=== PATIENT | female | born 1935 | race Two or more races ===

== ENCOUNTER 2019-04-21 00:30 | Inpatient (IN) | payer MEDICARE, OTHER ==
[~2019-04-21] VITALS: Ht 154.9 cm; Wt 66.0 kg
[2019-04-21] VITALS (33 sets, daily range): BP systolic 83–119; BP diastolic 35–75
[2019-04-21 00:53] LABS: BASOPHILS # (AUTO) 0.1 /CMM (0.0-0.2); BASOPHILS % (AUTO) 0.2 % (0.0-2.0); EOSINOPHILS % (AUTO) 0.1 % (0.0-6.0); PLATELET COUNT (AUTO) 91 /CMM (150-450)
[2019-04-21 01:00] LABS: CALCIUM, SERUM 8.2 mg/dL (8.5-10.1); CARBON DIOXIDE 16 mmol/L (21-32); CHLORIDE 102 mmol/L (98-107); CREATININE 2.5 mg/dL (0.6-1.3); GLUCOSE 77 mg/dL (74-106); HEMATOCRIT 39 % (33-45); HEMOGLOBIN 12.6 g/dL (11.5-14.8); LYMPHOCYTES # (AUTO) 0.8 /CMM (0.8-4.8); LYMPHOCYTES % (AUTO) 2.3 % (20.0-44.0); MEAN CORPUSCULAR HGB CONC 32 g/dl (31.0-36.0); MEAN CORPUSCULAR VOLUME 97 fL (82-100); MONOCYTES # (AUTO) 25.4 /CMM (0.1-1.30); MONOCYTES % (AUTO) 73.8 % (2.0-12.0); NEUTROPHILS # (AUTO) 8.1 /CMM (1.8-8.9); NEUTROPHILS % (AUTO) 23.6 % (43.0-81.0); POTASSIUM 5.2 mmol/L (3.5-5.1); RED BLOOD CELL COUNT(AUTO) 4.03 MIL/uL (4.0-5.2); SODIUM SERUM 137 mmol/L (136-145); UREA NITROGEN, BLOOD 40 mg/dL (7-18)
[2019-04-21] MEDS ORDERED: IV NS 0.9% 1,000 ML BAG IV ONE ×3 (01:00→02:00)
[2019-04-21 01:02] LABS: APPEARANCE,URINE Clear (CLEAR); BILIRUBIN,URINE MODERATE (NEGATIVE); BLOOD, URINE Trace-intact Ery/uL (NEGATIVE); COLOR,URINE Yellow (YELLOW); KETONES,URINE Trace (NEGATIVE); LEUKOCYTE ESTERASE ,URINE Small (NEGATIVE); NITRITE, URINE Negative (NEGATIVE); PROTEIN,URINE 30 mg/dl (NEGATIVE); UGLUCOSE 100 MG/DL mg/dL (NEGATIVE)
[2019-04-21 01:03] LABS: WHITE BLOOD COUNT (AUTO) 34.4 K/uL (4.3-11.0)
[2019-04-21 01:13] LABS: ALANINE AMINOTRANSFERASE 53 U/L (12-78); ALBUMIN 2.3 g/dL (3.4-5.0); ALKALINE PHOSPHATASE 198 U/L (46-116); ASPARTATE AMINOTRANSFERASE 85 U/L (15-37); B-TYPE NATRIURETIC PEPTIDE 9852 PG/ML (0-125); BILIRUBIN,DIRECT 0.4 mg/dL (0.0-0.2); BILIRUBIN,TOTAL 0.8 mg/dL (0.2-1.0); TOTAL PROTEIN, SERUM 5.8 g/dL (6.4-8.2)
[2019-04-21 01:29] LABS: WBC,URINE 51-80 /HPF (0-3)
[2019-04-21 01:30] LABS: BACTERIA,URINE Moderate /HPF (None Seen); SQUAMOUS EPITHELIAL CELL,UR Few /HPF (None Seen)
[2019-04-21] MEDS ORDERED: PIPERACILLIN /TAZOBACTAM 4.5 G in IV D5W 50 ML IV ONE (01:30)
[2019-04-21] MEDS ORDERED: VANCOMYCIN 1 GM in IV D5W 250 ML IV ONE (01:30)
[2019-04-21 01:33] LABS: BAND % (MANUAL) 17 % (0.0-5.0); LYMPHOCYTES % (MANUAL) 1 % (16-48); MONOCYTES % (MANUAL) 2 % (0-11.0); NEUTROPHILS % (MANUAL) 80 (42-76)
[2019-04-21] MEDS ORDERED: VANCOMYCIN 1 GM VIAL ONE (01:42)
[2019-04-21] MEDS ORDERED: PHENYLEPHRINE 40 MG in IV D5W 250 ML IV PRN ×2 (05:00→05:30)
[2019-04-21] MEDS ORDERED: LEVALBUTEROL HCL NEB 1.25 MG/0.5 ML VIAL.NEB NEB PRN (05:00)
[2019-04-21 05:29] LABS: BASOPHILS % (AUTO) 0.1 % (0.0-2.0); EOSINOPHILS % (AUTO) 17.2 % (0.0-6.0); HEMATOCRIT 36 % (33-45); HEMOGLOBIN 11.7 g/dL (11.5-14.8); LYMPHOCYTES # (AUTO) 0.6 /CMM (0.8-4.8); LYMPHOCYTES % (AUTO) 2.6 % (20.0-44.0); MEAN CORPUSCULAR HGB CONC 33 g/dl (31.0-36.0); MEAN CORPUSCULAR VOLUME 96 fL (82-100); MONOCYTES # (AUTO) 0.2 /CMM (0.1-1.30); MONOCYTES % (AUTO) 0.8 % (2.0-12.0); NEUTROPHILS # (AUTO) 17.9 /CMM (1.8-8.9); NEUTROPHILS % (AUTO) 79.3 % (43.0-81.0); PLATELET COUNT (AUTO) 66 /CMM (150-450); RED BLOOD CELL COUNT(AUTO) 3.76 MIL/uL (4.0-5.2); WHITE BLOOD COUNT (AUTO) 22.6 K/uL (4.3-11.0)
[2019-04-21] MEDS ORDERED: IV NS 0.9% 250 ML IV PRN (05:30)
[2019-04-21 05:44] LABS: ALANINE AMINOTRANSFERASE 47 U/L (12-78); ALBUMIN 2.1 g/dL (3.4-5.0); ALKALINE PHOSPHATASE 189 U/L (46-116); ASPARTATE AMINOTRANSFERASE 77 U/L (15-37); BILIRUBIN,TOTAL 0.9 mg/dL (0.2-1.0); CALCIUM, SERUM 6.8 mg/dL (8.5-10.1); CARBON DIOXIDE 15 mmol/L (21-32); CHLORIDE 108 mmol/L (98-107); CREATININE 1.8 mg/dL (0.6-1.3); GLUCOSE 85 mg/dL (74-106); MAGNESIUM 1.5 mg/dL (1.8-2.4); PHOSPHORUS 4.6 mg/dL (2.5-4.9); POTASSIUM 4.7 mmol/L (3.5-5.1); SODIUM SERUM 140 mmol/L (136-145); TOTAL PROTEIN, SERUM 5.5 g/dL (6.4-8.2); UREA NITROGEN, BLOOD 33 mg/dL (7-18)
[2019-04-21 05:45] LABS: IRON, SERUM 10 ug/dl (50-175); TOTAL IRON BINDING CAPACITY 214 ug/dl (250-450)
[2019-04-21] MEDS ORDERED: ACET-73 PO (05:49)
[2019-04-21] MEDS ORDERED: INSU100I26 SQ (05:49)
[2019-04-21] MEDS ORDERED: NA P133E RC (05:49)
[2019-04-21] MEDS ORDERED: ATOR20TA PO (05:49)
[2019-04-21] MEDS ORDERED: MAGN400O21 PO (05:49)
[2019-04-21] MEDS ORDERED: BISA-79 PR (05:49)
[2019-04-21] MEDS ORDERED: CRAN450C PO (05:49)
[2019-04-21] MEDS ORDERED: INSU100V39 SQ (05:49)
[2019-04-21] MEDS ORDERED: TRAM50TA2 PO (05:50)
[2019-04-21] MEDS ORDERED: LEVO25TA7 PO (05:50)
[2019-04-21] MEDS ORDERED: DOCU-141 PO (05:50)
[2019-04-21] MEDS ORDERED: POLY119P2 PO (05:50)
[2019-04-21] MEDS ORDERED: FOLI1TAB16 PO (05:50)
[2019-04-21] MEDS ORDERED: PREG50CA PO (05:50)
[2019-04-21] MEDS ORDERED: METF-440 PO (05:50)
[2019-04-21] MEDS ORDERED: LOSA25TA27 PO (05:50)
[2019-04-21] MEDS ORDERED: ASCO500T9 PO (05:50)
[2019-04-21] MEDS ORDERED: OMEP20CA11 PO (05:50)
[2019-04-21] MEDS ORDERED: FURO20TA4 PO (05:50)
[2019-04-21] MEDS ORDERED: MULT1TAB73 PO (05:50)
[2019-04-21] MEDS ORDERED: LEVO500T75 PO (05:50)
[2019-04-21 05:52] LABS: CHOLESTEROL 58 mg/dL (<200); HDL CHOLESTEROL 30 mg/dL (40-60); LDL 7 mg/dL (0-99); THYROID STIMULATING HORMONE 4.071 uIU/mL (0.358-3.74); TRIGLYCERIDES 72 mg/dL (30-150)
[2019-04-21] MEDS ORDERED: PIPERACILLIN /TAZOBACTAM 2.25 G VIAL IV ONE (05:52)
[2019-04-21] MEDS ORDERED: PIPERACILLIN /TAZOBACTAM 2.25 G in IV D5W 50 ML IV SCH (06:00)
[2019-04-21 06:12] LABS: LYMPHOCYTES % (MANUAL) 9 % (16-48); MONOCYTES % (MANUAL) 6 % (0-11.0); NEUTROPHILS % (MANUAL) 85 (42-76)
[2019-04-21] MEDS ORDERED: ONDANSETRON HCL/PF 4 MG/2 ML VIAL IVP PRN (07:00)
[2019-04-21] MEDS ORDERED: MAGNESIUM HYDROXIDE 30 ML UDC PO PRN (07:30)
[2019-04-21] MEDS ORDERED: DEXTROSE 50%-WATER 50 ML DISP.SYRIN IV PRN (07:30)
[2019-04-21] MEDS ORDERED: FEE PK DOSING 1 MIN EA MC ONE (08:21)
[2019-04-21] MEDS: BLOOD SUGAR DIAGNOSTIC 1 EACH STRIP IN SCH ×4 (08:41→22:30)
[2019-04-21] MEDS: PANTOPRAZOLE 40 MG VIAL IV SCH (08:41)
[2019-04-21] MEDS: FUROSEMIDE 20 MG/2 ML VIAL IV SCH ×2 (08:41→21:22)
[2019-04-21] MEDS: PIPERACILLIN /TAZOBACTAM 3.375 G in IV D5W 100 ML IV SCH ×2 (09:17→21:19)
[2019-04-21 09:31] LABS: ABG BASE EXCESS -10.6 mmol/L; ABG OXYGEN SATURATION 97.1 % (92.0-98.5); ABG PCO2 28.1 mmHg (35.0-45.0); ABG PH 7.317 (7.350-7.450); ABG PO2 103.1 mmHg (75.0-100.0); COHb 0.1 % (0.5-1.5); MetHb 0.6 % (0.0-1.5); O2Hb 96.4 % (94.0-97.0); SITE, ABG Right Radial
[2019-04-21] MEDS ORDERED: Magnesium 1GM/D5W 100ML PREMIX 100 ML IV SCH (10:30)
[2019-04-21] MEDS ORDERED: HEPARIN SODIUM, PORCINE 5000 UNITS/1 ML VIAL SQ SCH (10:30)
[2019-04-21] MEDS ORDERED: IV NS 0.9% 500 ML IV ONE (10:30)
[2019-04-21] MEDS: IV D5/ 0.9% NACL 1,000 ML IV PRN ×2 (10:51→21:18)
[2019-04-21] MEDS: IPRATROPIUM NEB FS 0.5 MG/2.5 ML AMPUL.NEB NEB SCH ×4 (11:53→23:44)
[2019-04-21] MEDS: ALBUTEROL HALF STRENGTH 1.25 MG/3 ML VIAL.NEB NEB SCH ×4 (11:53→23:44)
[2019-04-21] MEDS ORDERED: ALBUTEROL FS 2.5 MG/0.5 ML VIAL.NEB NEB PRN (13:30)
[2019-04-21] MEDS: INSULIN REGULAR, HUMAN 100 UNIT/ML 3 ML VIAL SQ PRN ×2 (16:42→23:38)
[2019-04-22] VITALS (64 sets, daily range): BP systolic 72–143; BP diastolic 31–94
[2019-04-22] MEDS ORDERED: VANCOMYCIN 0.75 GM in IV D5W 250 ML IV SCH (01:00)
[2019-04-22] MEDS: IPRATROPIUM NEB FS 0.5 MG/2.5 ML AMPUL.NEB NEB SCH ×6 (03:40→23:33)
[2019-04-22] MEDS: ALBUTEROL HALF STRENGTH 1.25 MG/3 ML VIAL.NEB NEB SCH ×6 (03:40→23:33)
[2019-04-22 04:09] LABS: BASOPHILS % (AUTO) 0.2 % (0.0-2.0); EOSINOPHILS % (AUTO) 3.4 % (0.0-6.0); HEMATOCRIT 35 % (33-45); HEMOGLOBIN 11.7 g/dL (11.5-14.8); LYMPHOCYTES # (AUTO) 0.3 /CMM (0.8-4.8); LYMPHOCYTES % (AUTO) 1.8 % (20.0-44.0); MEAN CORPUSCULAR HGB CONC 34 g/dl (31.0-36.0); MEAN CORPUSCULAR VOLUME 94 fL (82-100); MONOCYTES # (AUTO) 0.4 /CMM (0.1-1.30); MONOCYTES % (AUTO) 2.9 % (2.0-12.0); NEUTROPHILS # (AUTO) 13.2 /CMM (1.8-8.9); NEUTROPHILS % (AUTO) 91.7 % (43.0-81.0); PLATELET COUNT (AUTO) 52 /CMM (150-450); WHITE BLOOD COUNT (AUTO) 14.4 K/uL (4.3-11.0)
[2019-04-22 04:19] LABS: CALCIUM, SERUM 7.4 mg/dL (8.5-10.1); CREATININE 1.1 mg/dL (0.6-1.3); MAGNESIUM 2.1 mg/dL (1.8-2.4); PHOSPHORUS 1.8 mg/dL (2.5-4.9)
[2019-04-22 05:23] LABS: BAND % (MANUAL) 4 % (0.0-5.0); LYMPHOCYTES % (MANUAL) 2 % (16-48); MONOCYTES % (MANUAL) 8 % (0-11.0); NEUTROPHILS % (MANUAL) 86 (42-76)
[2019-04-22] MEDS ORDERED: ACETAMINOPHEN 650 MG/SUPP.RECT RC PRN (06:00)
[2019-04-22] MEDS: IV D5/ 0.9% NACL 1,000 ML IV PRN (07:01)
[2019-04-22] MEDS ORDERED: POTASSIUM PHOSPHATE MM 15 MMOL in IV D5W 250 ML IV SCH (07:30)
[2019-04-22] MEDS: BLOOD SUGAR DIAGNOSTIC 1 EACH STRIP IN SCH ×4 (08:02→21:21)
[2019-04-22] MEDS: INSULIN REGULAR, HUMAN 100 UNIT/ML 3 ML VIAL SQ PRN ×4 (08:03→21:18)
[2019-04-22] MEDS: PANTOPRAZOLE 40 MG VIAL IV SCH (08:43)
[2019-04-22] MEDS: PIPERACILLIN /TAZOBACTAM 3.375 G in IV D5W 100 ML IV SCH ×2 (08:43→21:07)
[2019-04-22] MEDS: Z GUARD REMEDY 2 OZ OINT TP PRN (08:46)
[2019-04-22] MEDS: Potassium Chloride 40 MEQ in IV D5/ 0.9% NACL 1,000 ML IV PRN ×2 (10:25→21:07)
[2019-04-22] MEDS: HYDROGEL DRESSING 90 GM TUBE TP SCH (13:43)
[2019-04-22] MEDS: NYSTATIN TOP POWDER 15 GM BOTTLE TP SCH ×2 (13:43→17:27)
[2019-04-22] MEDS: SOD FERRIC GLUC 125 MG in IV NS 0.9% 100 ML IV SCH (14:54)
[2019-04-22] MEDS: VANCOMYCIN 1 GM in IV D5W 250 ML IV SCH (18:09)
[2019-04-22] MEDS: ACETAMINOPHEN 325 MG TABLET PO PRN (21:53)
[2019-04-22] MEDS ORDERED: MORPHINE SULFATE INJ 2 MG/ML DISP.SYRIN IV PRN (22:30)
[2019-04-23] VITALS (29 sets, daily range): BP systolic 87–145; BP diastolic 40–76
[2019-04-23] MEDS: IPRATROPIUM NEB FS 0.5 MG/2.5 ML AMPUL.NEB NEB SCH ×6 (03:17→23:11)
[2019-04-23] MEDS: ALBUTEROL HALF STRENGTH 1.25 MG/3 ML VIAL.NEB NEB SCH ×6 (03:18→23:11)
[2019-04-23 04:16] LABS: BASOPHILS % (AUTO) 0.2 % (0.0-2.0); HEMATOCRIT 33 % (33-45); HEMOGLOBIN 11.1 g/dL (11.5-14.8); LYMPHOCYTES # (AUTO) 0.4 /CMM (0.8-4.8); LYMPHOCYTES % (AUTO) 3.8 % (20.0-44.0); MEAN CORPUSCULAR HGB CONC 33 g/dl (31.0-36.0); MEAN CORPUSCULAR VOLUME 95 fL (82-100); MONOCYTES # (AUTO) 0.7 /CMM (0.1-1.30); MONOCYTES % (AUTO) 6.6 % (2.0-12.0); NEUTROPHILS # (AUTO) 9.3 /CMM (1.8-8.9); NEUTROPHILS % (AUTO) 88.4 % (43.0-81.0); RED BLOOD CELL COUNT(AUTO) 3.53 MIL/uL (4.0-5.2); WHITE BLOOD COUNT (AUTO) 10.6 K/uL (4.3-11.0)
[2019-04-23 04:42] LABS: ALBUMIN 1.8 g/dL (3.4-5.0); CALCIUM, SERUM 7.1 mg/dL (8.5-10.1); CREATININE 0.8 mg/dL (0.6-1.3); MAGNESIUM 1.7 mg/dL (1.8-2.4); PHOSPHORUS 1.4 mg/dL (2.5-4.9); POTASSIUM 3.5 mmol/L (3.5-5.1); TOTAL PROTEIN, SERUM 5.1 g/dL (6.4-8.2)
[2019-04-23 04:43] LABS: PLATELET COUNT (AUTO) 30 /CMM (150-450)
[2019-04-23 05:36] LABS: LYMPHOCYTES % (MANUAL) 4 % (16-48); METAMYELOCYTES % 4 % (0-0); MONOCYTES % (MANUAL) 1 % (0-11.0); NEUTROPHILS % (MANUAL) 85 (42-76); PROMYELOCYTES % 4 % (0-0); REACTIVE LYMPHOCYTES 2 % (0-0)
[2019-04-23] MEDS: PANTOPRAZOLE 40 MG TABLET.DR PO SCH (06:51)
[2019-04-23] MEDS: Magnesium 1GM/D5W 100ML PREMIX 100 ML IV SCH ×2 (06:51→08:01)
[2019-04-23] MEDS: BLOOD SUGAR DIAGNOSTIC 1 EACH STRIP IN SCH ×4 (06:57→21:21)
[2019-04-23] MEDS ORDERED: POTASSIUM PHOSPHATE MM 15 MMOL in IV D5W 250 ML IV SCH (07:00)
[2019-04-23] MEDS: PIPERACILLIN /TAZOBACTAM 3.375 G in IV D5W 100 ML IV SCH (08:01)
[2019-04-23] MEDS: HYDROGEL DRESSING 90 GM TUBE TP SCH (08:01)
[2019-04-23] MEDS: INSULIN REGULAR, HUMAN 100 UNIT/ML 3 ML VIAL SQ PRN ×4 (08:02→21:28)
[2019-04-23] MEDS: NYSTATIN TOP POWDER 15 GM BOTTLE TP SCH ×2 (08:02→17:21)
[2019-04-23] MEDS: Z GUARD REMEDY 2 OZ OINT TP PRN (08:03)
[2019-04-23] MEDS: MUPIROCIN OINT 2% 22 GM TUBE SCH ×2 (08:15→20:15)
[2019-04-23] MEDS: Potassium Chloride 40 MEQ in IV D5/ 0.9% NACL 1,000 ML IV PRN (08:15)
[2019-04-23] MEDS ORDERED: IV PREMIX D5 1/2NS + KCL 1,000 ML IV ONE (12:00)
[2019-04-23] MEDS: VANCOMYCIN 1 GM in IV D5W 250 ML IV SCH (13:14)
[2019-04-23] MEDS: SOD FERRIC GLUC 125 MG in IV NS 0.9% 100 ML IV SCH (14:20)
[2019-04-23] MEDS ORDERED: MEROPENEM 1 G in IV NS 0.9% 100 ML IV ONE (15:00)
[2019-04-23] MEDS: MEROPENEM 1 G in IV NS 0.9% 100 ML IV SCH (15:59)
[2019-04-23] MEDS: DOCUSATE SODIUM LIQ 100 MG/10 ML UDC PO SCH (17:21)
[2019-04-23] MEDS: ACETAMINOPHEN 325 MG TABLET PO PRN (21:20)
[2019-04-24] MEDS: MEROPENEM 1 G in IV NS 0.9% 100 ML IV SCH ×2 (00:10→12:05)
[2019-04-24] MEDS ORDERED: VANCOMYCIN 0.75 GM in IV D5W 250 ML IV SCH (01:00)
[2019-04-24] MEDS: ALBUTEROL HALF STRENGTH 1.25 MG/3 ML VIAL.NEB NEB SCH ×6 (03:03→23:58)
[2019-04-24] MEDS: IPRATROPIUM NEB FS 0.5 MG/2.5 ML AMPUL.NEB NEB SCH ×6 (03:03→23:58)
[2019-04-24 04:00] VITALS: BP 114/62
[2019-04-24 06:20] LABS: BASOPHILS % (AUTO) 0.1 % (0.0-2.0); EOSINOPHILS % (AUTO) 1.8 % (0.0-6.0); HEMATOCRIT 34 % (33-45); HEMOGLOBIN 11.5 g/dL (11.5-14.8); LYMPHOCYTES # (AUTO) 0.5 /CMM (0.8-4.8); LYMPHOCYTES % (AUTO) 5.6 % (20.0-44.0); MEAN CORPUSCULAR HGB CONC 34 g/dl (31.0-36.0); MEAN CORPUSCULAR VOLUME 93 fL (82-100); MONOCYTES # (AUTO) 1.1 /CMM (0.1-1.30); MONOCYTES % (AUTO) 12.1 % (2.0-12.0); NEUTROPHILS # (AUTO) 7.3 /CMM (1.8-8.9); NEUTROPHILS % (AUTO) 80.4 % (43.0-81.0); RED BLOOD CELL COUNT(AUTO) 3.69 MIL/uL (4.0-5.2); WHITE BLOOD COUNT (AUTO) 9.1 K/uL (4.3-11.0)
[2019-04-24 06:26] LABS: PLATELET COUNT (AUTO) 29 /CMM (150-450)
[2019-04-24] MEDS: BLOOD SUGAR DIAGNOSTIC 1 EACH STRIP IN SCH ×4 (06:38→22:18)
[2019-04-24 06:39] LABS: ALANINE AMINOTRANSFERASE 25 U/L (12-78); ALBUMIN 1.8 g/dL (3.4-5.0); ALKALINE PHOSPHATASE 181 U/L (46-116); ASPARTATE AMINOTRANSFERASE 41 U/L (15-37); BILIRUBIN,TOTAL 1.1 mg/dL (0.2-1.0); CALCIUM, SERUM 7.5 mg/dL (8.5-10.1); CARBON DIOXIDE 20 mmol/L (21-32); CHLORIDE 112 mmol/L (98-107); CREATININE 0.6 mg/dL (0.6-1.3); GLUCOSE 156 mg/dL (74-106); MAGNESIUM 2.1 mg/dL (1.8-2.4); PHOSPHORUS 1.4 mg/dL (2.5-4.9); SODIUM SERUM 143 mmol/L (136-145); TOTAL PROTEIN, SERUM 5.5 g/dL (6.4-8.2); UREA NITROGEN, BLOOD 18 mg/dL (7-18)
[2019-04-24 08:00] VITALS: BP 134/68
[2019-04-24] MEDS: PANTOPRAZOLE 40 MG TABLET.DR PO SCH (08:23)
[2019-04-24] MEDS: DOCUSATE SODIUM LIQ 100 MG/10 ML UDC PO SCH ×2 (08:23→17:38)
[2019-04-24 09:31] LABS: BAND % (MANUAL) 1 % (0.0-5.0); EOSINOPHILS % (MANUAL) 1 % (0-4); LYMPHOCYTES % (MANUAL) 3 % (16-48); MONOCYTES % (MANUAL) 18 % (0-11.0); NEUTROPHILS % (MANUAL) 77 (42-76)
[2019-04-24] MEDS: MUPIROCIN OINT 2% 22 GM TUBE SCH ×2 (09:36→21:55)
[2019-04-24] MEDS: NYSTATIN TOP POWDER 15 GM BOTTLE TP SCH ×2 (09:36→18:00)
[2019-04-24] MEDS: HYDROGEL DRESSING 90 GM TUBE TP SCH (09:36)
[2019-04-24] MEDS ORDERED: K PHOS NEUTRAL 250 MG TABLET PO ONE (11:00)
[2019-04-24] MEDS: INSULIN REGULAR, HUMAN 100 UNIT/ML 3 ML VIAL SQ PRN ×3 (11:52→22:19)
[2019-04-24] MEDS: SOD FERRIC GLUC 125 MG in IV NS 0.9% 100 ML IV SCH (13:48)
[2019-04-24 16:00] VITALS: BP 134/78
[2019-04-24 20:08] VITALS: BP 154/76
[2019-04-25] MEDS: MEROPENEM 1 G in IV NS 0.9% 100 ML IV SCH ×3 (00:22→23:41)
[2019-04-25] MEDS: IPRATROPIUM NEB FS 0.5 MG/2.5 ML AMPUL.NEB NEB SCH ×5 (04:04→19:49)
[2019-04-25] MEDS: ALBUTEROL HALF STRENGTH 1.25 MG/3 ML VIAL.NEB NEB SCH ×5 (04:04→19:49)
[2019-04-25] MEDS: BLOOD SUGAR DIAGNOSTIC 1 EACH STRIP IN SCH ×4 (06:33→21:26)
[2019-04-25 06:39] LABS: BASOPHILS % (AUTO) 0.3 % (0.0-2.0); EOSINOPHILS % (AUTO) 1.7 % (0.0-6.0); HEMATOCRIT 35 % (33-45); HEMOGLOBIN 11.6 g/dL (11.5-14.8); LYMPHOCYTES # (AUTO) 0.6 /CMM (0.8-4.8); LYMPHOCYTES % (AUTO) 5.7 % (20.0-44.0); MEAN CORPUSCULAR HGB CONC 33 g/dl (31.0-36.0); MEAN CORPUSCULAR VOLUME 94 fL (82-100); MONOCYTES # (AUTO) 1.3 /CMM (0.1-1.30); MONOCYTES % (AUTO) 12.9 % (2.0-12.0); NEUTROPHILS # (AUTO) 7.8 /CMM (1.8-8.9); NEUTROPHILS % (AUTO) 79.4 % (43.0-81.0); RED BLOOD CELL COUNT(AUTO) 3.75 MIL/uL (4.0-5.2); WHITE BLOOD COUNT (AUTO) 9.8 K/uL (4.3-11.0)
[2019-04-25 06:42] LABS: PLATELET COUNT (AUTO) 36 /CMM (150-450)
[2019-04-25 06:58] LABS: CALCIUM, SERUM 7.9 mg/dL (8.5-10.1); CREATININE 0.6 mg/dL (0.6-1.3); MAGNESIUM 1.8 mg/dL (1.8-2.4); PHOSPHORUS 1.9 mg/dL (2.5-4.9); POTASSIUM 4.1 mmol/L (3.5-5.1)
[2019-04-25 08:00] VITALS: BP 126/69
[2019-04-25] MEDS: DOCUSATE SODIUM LIQ 100 MG/10 ML UDC PO SCH ×2 (08:55→17:37)
[2019-04-25] MEDS: HYDROGEL DRESSING 90 GM TUBE TP SCH (08:55)
[2019-04-25] MEDS: NYSTATIN TOP POWDER 15 GM BOTTLE TP SCH ×2 (08:57→17:38)
[2019-04-25] MEDS: MUPIROCIN OINT 2% 22 GM TUBE SCH ×2 (08:57→21:23)
[2019-04-25] MEDS: PANTOPRAZOLE 40 MG TABLET.DR PO SCH (08:58)
[2019-04-25] MEDS ORDERED: K PHOS NEUTRAL 250 MG TABLET PO ONE (09:30)
[2019-04-25 09:52] LABS: BAND % (MANUAL) 4 % (0.0-5.0); EOSINOPHILS % (MANUAL) 2 % (0-4); LYMPHOCYTES % (MANUAL) 7 % (16-48); MONOCYTES % (MANUAL) 7 % (0-11.0); NEUTROPHILS % (MANUAL) 80 (42-76)
[2019-04-25] MEDS: INSULIN REGULAR, HUMAN 100 UNIT/ML 3 ML VIAL SQ PRN ×3 (13:13→21:27)
[2019-04-25] MEDS: SOD FERRIC GLUC 125 MG in IV NS 0.9% 100 ML IV SCH (15:03)
[2019-04-25] MEDS ORDERED: ACYCLOVIR IV 500 MG in IV NS 0.9% 100 ML IV SCH (15:30)
[2019-04-25] MEDS: NEOMY SULF/BACITRAC ZN/POLY 15 GM TUBE TP SCH (15:30)
[2019-04-25 16:00] VITALS: BP 148/110
[2019-04-25] MEDS: VALACYCLOVIR HCL 500 MG TABLET PO SCH (17:37)
[2019-04-25 20:00] VITALS: BP 119/72
[2019-04-26] MEDS: ALBUTEROL HALF STRENGTH 1.25 MG/3 ML VIAL.NEB NEB SCH ×7 (00:15→23:01)
[2019-04-26] MEDS: IPRATROPIUM NEB FS 0.5 MG/2.5 ML AMPUL.NEB NEB SCH ×7 (00:15→23:01)
[2019-04-26 06:32] LABS: BASOPHILS % (AUTO) 0.1 % (0.0-2.0); EOSINOPHILS % (AUTO) 2.2 % (0.0-6.0); HEMATOCRIT 36 % (33-45); HEMOGLOBIN 11.7 g/dL (11.5-14.8); LYMPHOCYTES # (AUTO) 0.8 /CMM (0.8-4.8); LYMPHOCYTES % (AUTO) 6.2 % (20.0-44.0); MEAN CORPUSCULAR HGB CONC 33 g/dl (31.0-36.0); MEAN CORPUSCULAR VOLUME 94 fL (82-100); MONOCYTES # (AUTO) 1.4 /CMM (0.1-1.30); MONOCYTES % (AUTO) 11.3 % (2.0-12.0); NEUTROPHILS # (AUTO) 10.1 /CMM (1.8-8.9); NEUTROPHILS % (AUTO) 80.2 % (43.0-81.0); RED BLOOD CELL COUNT(AUTO) 3.79 MIL/uL (4.0-5.2); WHITE BLOOD COUNT (AUTO) 12.6 K/uL (4.3-11.0)
[2019-04-26 06:35] LABS: PLATELET COUNT (AUTO) 45 /CMM (150-450)
[2019-04-26] MEDS: BLOOD SUGAR DIAGNOSTIC 1 EACH STRIP IN SCH ×4 (06:43→22:17)
[2019-04-26] MEDS: INSULIN REGULAR, HUMAN 100 UNIT/ML 3 ML VIAL SQ PRN ×4 (06:44→22:18)
[2019-04-26 06:51] LABS: CREATININE 0.6 mg/dL (0.6-1.3); MAGNESIUM 1.7 mg/dL (1.8-2.4); PHOSPHORUS 3.3 mg/dL (2.5-4.9)
[2019-04-26] MEDS: PANTOPRAZOLE 40 MG TABLET.DR PO SCH (07:43)
[2019-04-26 07:50] LABS: BAND % (MANUAL) 2 % (0.0-5.0); NEUTROPHILS % (MANUAL) 81 (42-76)
[2019-04-26 07:51] LABS: LYMPHOCYTES % (MANUAL) 7 % (16-48); MONOCYTES % (MANUAL) 10 % (0-11.0)
[2019-04-26 08:00] VITALS: BP 140/74
[2019-04-26 08:09] LABS: IMMUNOGLOBULIN A, SERUM 441 mg/dL (64-422); IMMUNOGLOBULIN G, SERUM 1051 mg/dL (700-1600); IMMUNOGLOBULIN M, SERUM 187 mg/dL (26-217)
[2019-04-26] MEDS: MUPIROCIN OINT 2% 22 GM TUBE SCH ×2 (08:24→20:32)
[2019-04-26] MEDS: VALACYCLOVIR HCL 500 MG TABLET PO SCH ×2 (08:24→17:35)
[2019-04-26] MEDS: DOCUSATE SODIUM LIQ 100 MG/10 ML UDC PO SCH ×2 (08:24→17:35)
[2019-04-26] MEDS: NEOMY SULF/BACITRAC ZN/POLY 15 GM TUBE TP SCH (08:25)
[2019-04-26] MEDS: NYSTATIN TOP POWDER 15 GM BOTTLE TP SCH ×2 (08:25→17:35)
[2019-04-26] MEDS: HYDROGEL DRESSING 90 GM TUBE TP SCH (08:26)
[2019-04-26] MEDS ORDERED: MAGNESIUM OXIDE 400 MG TABLET PO ONE (10:00)
[2019-04-26] MEDS ORDERED: POLYETHYLENE GLYCOL 3350 17 GM POWD.PACK PO PRN (11:00)
[2019-04-26] MEDS: MEROPENEM 1 G in IV NS 0.9% 100 ML IV SCH ×2 (12:27→23:40)
[2019-04-26 16:00] VITALS: BP 128/85
[2019-04-26] MEDS: SOD FERRIC GLUC 125 MG in IV NS 0.9% 100 ML IV SCH (16:04)
[2019-04-26 20:00] VITALS: BP 123/59
[2019-04-26 20:21] VITALS: BP 123/59
[2019-04-27] MEDS: ALBUTEROL HALF STRENGTH 1.25 MG/3 ML VIAL.NEB NEB SCH ×5 (04:03→20:38)
[2019-04-27] MEDS: IPRATROPIUM NEB FS 0.5 MG/2.5 ML AMPUL.NEB NEB SCH ×5 (04:03→20:38)
[2019-04-27 06:24] LABS: BASOPHILS % (AUTO) 0.3 % (0.0-2.0); HEMATOCRIT 31 % (33-45); HEMOGLOBIN 10.2 g/dL (11.5-14.8); LYMPHOCYTES # (AUTO) 0.7 /CMM (0.8-4.8); LYMPHOCYTES % (AUTO) 6.5 % (20.0-44.0); MEAN CORPUSCULAR HGB CONC 33 g/dl (31.0-36.0); MEAN CORPUSCULAR VOLUME 94 fL (82-100); MONOCYTES % (AUTO) 8.5 % (2.0-12.0); NEUTROPHILS # (AUTO) 9.5 /CMM (1.8-8.9); NEUTROPHILS % (AUTO) 82.7 % (43.0-81.0); PLATELET COUNT (AUTO) 57 /CMM (150-450); RED BLOOD CELL COUNT(AUTO) 3.33 MIL/uL (4.0-5.2); WHITE BLOOD COUNT (AUTO) 11.5 K/uL (4.3-11.0)
[2019-04-27 07:00] LABS: CARBON DIOXIDE 26 mmol/L (21-32); CHLORIDE 112 mmol/L (98-107); CREATININE 0.5 mg/dL (0.6-1.3); GLUCOSE 133 mg/dL (74-106); MAGNESIUM 1.8 mg/dL (1.8-2.4); PHOSPHORUS 3.7 mg/dL (2.5-4.9); POTASSIUM 4.2 mmol/L (3.5-5.1); SODIUM SERUM 144 mmol/L (136-145); UREA NITROGEN, BLOOD 23 mg/dL (7-18)
[2019-04-27] MEDS: BLOOD SUGAR DIAGNOSTIC 1 EACH STRIP IN SCH ×4 (07:22→21:34)
[2019-04-27] MEDS: INSULIN REGULAR, HUMAN 100 UNIT/ML 3 ML VIAL SQ PRN ×3 (07:23→17:31)
[2019-04-27 08:00] VITALS: BP 102/52
[2019-04-27 08:40] LABS: BAND % (MANUAL) 1 % (0.0-5.0); EOSINOPHILS % (MANUAL) 3 % (0-4); LYMPHOCYTES % (MANUAL) 7 % (16-48); MONOCYTES % (MANUAL) 8 % (0-11.0); NEUTROPHILS % (MANUAL) 81 (42-76)
[2019-04-27] MEDS: VALACYCLOVIR HCL 500 MG TABLET PO SCH ×2 (08:40→17:28)
[2019-04-27] MEDS: DOCUSATE SODIUM LIQ 100 MG/10 ML UDC PO SCH ×2 (08:40→17:28)
[2019-04-27] MEDS: PANTOPRAZOLE 40 MG TABLET.DR PO SCH (08:40)
[2019-04-27] MEDS: MUPIROCIN OINT 2% 22 GM TUBE SCH ×2 (08:41→20:28)
[2019-04-27] MEDS: HYDROGEL DRESSING 90 GM TUBE TP SCH (08:41)
[2019-04-27] MEDS: NYSTATIN TOP POWDER 15 GM BOTTLE TP SCH ×2 (08:41→17:29)
[2019-04-27] MEDS: NEOMY SULF/BACITRAC ZN/POLY 15 GM TUBE TP SCH (08:41)
[2019-04-27] MEDS ORDERED: ERTA1VIA4 IV (10:22)
[2019-04-27] MEDS ORDERED: VALA500T PO (10:22)
[2019-04-27] MEDS ORDERED: FUROSEMIDE 40 MG/4 ML VIAL IV ONE (10:30)
[2019-04-27] MEDS: MEROPENEM 1 G in IV NS 0.9% 100 ML IV SCH (11:38)
[2019-04-27 12:06] LABS: *SPE A/G RATIO 0.7 (0.7-1.7); *SPE ALBUMIN 2.1 g/dL (2.9-4.4); *SPE ALPHA-1-GLOBULIN 0.4 g/dL (0.0-0.4); *SPE ALPHA-2-GLOBULIN 0.6 g/dL (0.4-1.0); *SPE BETA GLOBULIN 0.8 g/dL (0.7-1.3); *SPE M-SPIKE Not Observed g/dL (Not Observed); *SPEGAMMA GLOBULIN 1.2 g/dL (0.4-1.8)
[2019-04-27 16:00] VITALS: BP 90/49
[2019-04-27 20:00] VITALS: BP 117/63
== END 2019-04-27 22:45 | DRG 871 ==
LOC: ER 00:30 → ICU 02:24 → TELE 04-23 14:28 → MED 04-24 08:04
PROVIDERS: ADMIT Internal Medicine; ATTEND Nurse Practitioner Acute Care
PROC: 02HV33Z Insertion of Infusion Device into Superior Vena Cava, Percutaneous Approach (ICD-10-PCS; principal; 2019-04-21)
PROC: B548ZZA Ultrasonography of Superior Vena Cava, Guidance (ICD-10-PCS; 2019-04-21)
DX: A41.51 Sepsis due to Escherichia coli [E. coli] (principal); L89.153 Pressure ulcer of sacral region, stage 3; E43 Unspecified severe protein-calorie malnutrition; G92 Toxic encephalopathy; J96.01 Acute respiratory failure with hypoxia; R65.21 Severe sepsis with septic shock; N17.0 Acute kidney failure with tubular necrosis; I50.31 Acute diastolic (congestive) heart failure; I21.A1 Myocardial infarction type 2; N39.0 Urinary tract infection, site not specified; I13.0 Hypertensive heart and chronic kidney disease with heart failure and stage 1 through stage 4 chronic kidney disease, or unspecified chronic kidney disease; E87.2 Acidosis; E87.0 Hyperosmolality and hypernatremia; Z16.12 Extended spectrum beta lactamase (ESBL) resistance; R18.8 Other ascites; K76.6 Portal hypertension; N18.9 Chronic kidney disease, unspecified; D73.1 Hypersplenism; E03.9 Hypothyroidism, unspecified; D69.59 Other secondary thrombocytopenia; E83.42 Hypomagnesemia; E78.5 Hyperlipidemia, unspecified; E86.0 Dehydration; E11.9 Type 2 diabetes mellitus without complications; D50.9 Iron deficiency anemia, unspecified; K21.9 Gastro-esophageal reflux disease without esophagitis; L30.4 Erythema intertrigo; Z66 Do not resuscitate; D69.6 Thrombocytopenia, unspecified; M19.90 Unspecified osteoarthritis, unspecified site; Z68.27 Body mass index [BMI] 27.0-27.9, adult; E87.5 Hyperkalemia; F09 Unspecified mental disorder due to known physiological condition; F03.90 Unspecified dementia, unspecified severity, without behavioral disturbance, psychotic disturbance, mood disturbance, and anxiety; G89.29 Other chronic pain; I11.0 Hypertensive heart disease with heart failure; K74.60 Unspecified cirrhosis of liver; E11.40 Type 2 diabetes mellitus with diabetic neuropathy, unspecified; B00.89 Other herpesviral infection
CPT/HCPCS: 36415; 36569; 36600; 70450-TC; 71045-TC; 74018; 76700-TC; 76770-TC; 80048-TC; 80053-TC; 80061-TC; 80076-TC; 80202-TC; 81000-TC; 82140-TC; 82378; 82533; 82784; 82962-TC; 83540-TC; 83605-TC; 83735-TC; 83880; 84100-TC; 84155; 84165; 84439-TC; 84443-TC; 84484-TC; 85025-TC; 85385-TC; 85610-TC; 85730-TC; 86334; 87040-TC; 87081-TC; 87086-TC; 87186-TC; 92526; 92611-TC; 93307-TC; 94760-TC; 94799-TC; 97110-TC; 97112-TC; 97530-TC; A6248; C1751; C9113; G0378; J0133; J1815; J1940; J2185; J2270; J2370; J2543; J2916; J3370; J3475; J3480; J3490; J7030; J7040; J7042; J7050; J7060

== ENCOUNTER 2019-07-10 21:49 | Inpatient (IN) | payer MEDICARE, OTHER ==
[~2019-07-10] VITALS: Ht 142.2 cm
[~2019-07-10 21:49] MED LIST: ACET-73 PO; ASCO-352 PO; ATOR20TA PO; BISA-79 PR; CRAN450C PO; DOCU-141 PO; ERTA1VIA4 IV; FOLI1TAB16 PO; FURO20TA4 PO; INSU100I26 SQ; INSU100V39 SQ; LEVO25TA7 PO; LOSA25TA27 PO; MAGN400O21 PO; METF-440 PO; MULT1TAB73 PO; NA P133E RC; OMEP20CA15 PO; POLY119P2 PO; VALA500T PO
[2019-07-10] MEDS ORDERED: ACETAMINOPHEN 650 MG/SUPP.RECT RC ONE ×2 (22:24→22:30)
[2019-07-10] MEDS ORDERED: VANCOMYCIN 1 GM VIAL ONE (22:24)
[2019-07-10] MEDS ORDERED: PIPERACILLIN /TAZOBACTAM 3.375 G VIAL IV ONE (22:24)
[2019-07-10] MEDS ORDERED: PIPERACILLIN /TAZOBACTAM 3.375 G in IV D5W 50 ML IV ONE (22:30)
[2019-07-10] MEDS ORDERED: VANCOMYCIN 1 GM in IV D5W 250 ML IV ONE (22:30)
[2019-07-10] MEDS ORDERED: IV NS 0.9% 1,000 ML BAG IV ONE (22:30)
--- NOTE | 2019-07-10 22:40 | NUR ---
BIB director behavioral health FROM [facility] FR EVALUATION OF AMS AND INCREASED WEAKNESS. PT NON VERBAL EYES OPEN. PT HAVING TROUBLE BREATHING, CHRISTINA LEGS SWELLING. PLACED ON DOCUMENTATION BILLING CLERK. PT SEEN & EVAL'D BY DR. HSIEH. WILL CONT TO MONITOR.
[2019-07-10 22:46] LABS: BASOPHILS # (AUTO) 0.1 /CMM (0.0-0.2); EOSINOPHILS % (AUTO) 0.8 % (0.0-6.0); NEUTROPHILS # (AUTO) 9.9 /CMM (1.8-8.9)
[2019-07-10 22:50] LABS: BASOPHILS % (AUTO) 0.7 % (0.0-2.0); HEMATOCRIT 38 % (33-45); HEMOGLOBIN 11.9 g/dL (11.5-14.8); LYMPHOCYTES # (AUTO) 1.2 /CMM (0.8-4.8); LYMPHOCYTES % (AUTO) 10.2 % (20.0-44.0); MEAN CORPUSCULAR HGB CONC 31 g/dl (31.0-36.0); MEAN CORPUSCULAR VOLUME 99 fL (82-100); MONOCYTES # (AUTO) 0.2 /CMM (0.1-1.30); NEUTROPHILS % (AUTO) 86.3 % (43.0-81.0); PLATELET COUNT (AUTO) 143 /CMM (150-450); RED BLOOD CELL COUNT(AUTO) 3.84 MIL/uL (4.0-5.2); WHITE BLOOD COUNT (AUTO) 11.5 K/uL (4.3-11.0)
--- NOTE | 2019-07-10 22:55 | NUR ---
MEDICATED PER ERMD ORDER, PT STEFF WELL. WILL CONT TO MONITOR.
[2019-07-10 23:00] LABS: ALANINE AMINOTRANSFERASE 10 U/L (12-78); ALBUMIN 1.5 g/dL (3.4-5.0); ALKALINE PHOSPHATASE 171 U/L (46-116); ASPARTATE AMINOTRANSFERASE 25 U/L (15-37); BILIRUBIN,DIRECT 0.7 mg/dL (0.0-0.2); BILIRUBIN,TOTAL 1.5 mg/dL (0.2-1.0); CALCIUM, SERUM 7.8 mg/dL (8.5-10.1); CARBON DIOXIDE 25 mmol/L (21-32); CHLORIDE 122 mmol/L (98-107); CREATININE 1.3 mg/dL (0.6-1.3); GLUCOSE 116 mg/dL (74-106); POTASSIUM 3.6 mmol/L (3.5-5.1); TOTAL PROTEIN, SERUM 6.9 g/dL (6.4-8.2); UREA NITROGEN, BLOOD 35 mg/dL (7-18)
[2019-07-10 23:03] LABS: SODIUM SERUM 158 mmol/L (136-145)
[2019-07-10 23:40] LABS: APPEARANCE,URINE TURBID (CLEAR); COLOR,URINE AMBER (YELLOW)
[2019-07-10 23:41] LABS: BILIRUBIN,URINE NEGATIVE (NEGATIVE); BLOOD, URINE 3+ Ery/uL (NEGATIVE); KETONES,URINE NEGATIVE (NEGATIVE); NITRITE, URINE NEGATIVE (NEGATIVE); PH,URINE 7.5 (5.0-8.0); PROTEIN,URINE 3+ mg/dl (NEGATIVE); UGLUCOSE NEGATIVE (NEGATIVE); UROBILINOGEN,URINE 0.2 EU/dL (0.2)
[2019-07-10 23:42] LABS: BACTERIA,URINE Moderate /HPF (None Seen); LEUKOCYTE ESTERASE ,URINE 3+ (NEGATIVE); MUCUS,URINE Few /LPF (None Seen); RBC,URINE 51-80 /HPF (0-2); SQUAMOUS EPITHELIAL CELL,UR Few /HPF (None Seen); WBC,URINE TOO NUMEROUS TO COUN /HPF (0-3)
[2019-07-10 23:44] LABS: ABG BASE EXCESS -6.9 mmol/L; ABG OXYGEN SATURATION 91.3 % (92.0-98.5); ABG PCO2 23.6 mmHg (35.0-45.0); ABG PH 7.438 (7.350-7.450); ABG PO2 68.2 mmHg (75.0-100.0); AaDO2 218.6 mmHg; COHb 0.3 % (0.5-1.5); MetHb 0.5 % (0.0-1.5); O2Hb 90.6 % (94.0-97.0); SITE, ABG Left Radial
[2019-07-11] MEDS ORDERED: SODIUM BICARBONATE SYR 50 MEQ/50 ML DISP.SYRIN IV ONE
[2019-07-11] MEDS ORDERED: ACETAMINOPHEN 325 MG TABLET PO PRN (00:30)
[2019-07-11] MEDS ORDERED: ONDANSETRON HCL/PF 4 MG/2 ML VIAL IVP PRN (00:30)
[2019-07-11] MEDS ORDERED: ZOLPIDEM TARTRATE 5 MG TABLET PO PRN (00:30)
[2019-07-11] MEDS ORDERED: Z GUARD REMEDY 2 OZ OINT TP PRN (00:30)
[2019-07-11] MEDS ORDERED: HYDROCODONE/APAP 5/325MG 1 EACH TABLET PO PRN (00:30)
[2019-07-11 01:10] VITALS: BP 101/51
--- NOTE | 2019-07-11 01:10 | NUR ---
0110 ADMITTED FROM ER 84 YEAR OLD FEMALE WITH DX OF SEPSIS AND AMS. PATIENT ON SIMPLE FACE MASK AT 8LPM. O2 SATURATION NOTED IN THE LOW 90S WHEN CHECKED. NOTED PATIENT TO HAVE LABORED BREATHING IN THE MID 20S. BRANNON CATHETER TO DRAIN WITH SMALL AMOUNT OF BLOODY URINE. COLLEGE ATHLETE FARRUKH AT BEDSIDE AND AWARE OF IT. BILATERAL LOWER EXT. PITTING EDEMA NOTED. ADMISSION CARE RENDERED.
--- NOTE | 2019-07-11 01:13 | NUR ---
PT TO KATHERYN VIA VIVIAN WITH EMT AND RN.
--- NOTE | 2019-07-11 01:30 | NUR ---
7093 PAGED DEPARTMENT CLINICIAN FARRUKH FOR BIPAP ORDER. AWAITING CALL BACK
--- NOTE | 2019-07-11 01:43 | NUR ---
0143 REBECCA CHADWICK CALLED BACK WITH ORDER TO PUT PATIENT ON BIPAP 10/5 SETTING AND FOR CONTINUOUS PULSE OX READING. ORDER NOTED AND VERIFIED. RT WONG NOTIFIED.
--- NOTE | 2019-07-11 01:51 | NUR ---
SLEEPING AT THIS TIME. STILL WITH LABORED BREATHING BUT O2 SATURATION AT 95% ON FACE MASK AT 8LPM. UNABLE TO ANSWER QUESTIONS AT THIS TIME DUE TO CONDITION.
[2019-07-11] MEDS ORDERED: MEROPENEM 500 MG VIAL IV ONE (02:19)
[2019-07-11] MEDS: IV NS 0.9% 1,000 ML IV PRN ×2 (02:24→21:17)
[2019-07-11] MEDS: MEROPENEM 500 MG in IV NS 0.9% 50 ML IV SCH ×2 (02:26→14:40)
--- NOTE | 2019-07-11 02:36 | NUR ---
CRITICAL LACTIC ACID RESULT 6.1 RELAYED TO REBECCA CHADWICK VIA PHONE. AWAITING CALL BACK.
--- NOTE | 2019-07-11 03:00 | NUR ---
0300 NO NEW ORDER FOR CRITICAL LACTIC 6.1 PER AIR CARGO GROUND CREW SUPERVISOR FARRUKH.
--- NOTE | 2019-07-11 03:24 | NUR ---
PATIENT ON BIPAP ORDERED. O2 SATURATION AT 100%. NO SIGNS OF RESPIRATORY DISTRESS. PATIENT OPENS EYES TO VOICE AND NODS HEAD TO SIMPLE QUESTION. TURNED AND REPOSITIONED. HOB KEPT ELEVATED FOR MAXIMUM OXYGENATION. NOTED WITH WEEPING EDEMA ON LEFT UPPER EXTREMITY. BILATERAL ARMS AND LEGS ELEVATED ON PILLOWS.
[2019-07-11 04:00] VITALS: BP 105/59
[2019-07-11 04:24] LABS: CALCIUM, SERUM 7.3 mg/dL (8.5-10.1); CREATININE 1.3 mg/dL (0.6-1.3); MAGNESIUM 1.7 mg/dL (1.8-2.4); POTASSIUM 3.4 mmol/L (3.5-5.1)
--- NOTE | 2019-07-11 05:00 | NUR ---
0500 PATIENT CONTINUES TO TOLERATE BIPAP. O2 SATURATION 100%. MORE AWAKE AND ABLE TO NOD HEAD TO SIMPLE QUESTIONS. HOB KEPT ELEVATED FOR MAXIMUM OXYGENATION. REPOSITIONED FOR COMFORT.
[2019-07-11] MEDS ORDERED: FEE PK DOSING 1 MIN EA MC ONE (06:01)
--- NOTE | 2019-07-11 06:30 | NUR ---
0630 FIO2 TITRATED DOWN TO 40%. O2 SATURATION 100%. NO SIGNS OF RESPIRATORY DISTRESS.
--- NOTE | 2019-07-11 07:15 | NUR ---
0715 REPORT GIVEN TO RN HOLLY FOR TRANSFER OF CARE WITH QUESTIONS ANSWERED.
--- NOTE | 2019-07-11 07:49 | NUR ---
KATHERYN RN OPENING NOTES RECEIVED BEDSIDE REPORT, PT IN BED, TOLERATING BIPAP SETTINGS WELL, NO SIGNS OF RESPIRATORY DISTRESS NOTED. BRANNON CATHETER INTACT, PATENT, WITH HEMATURIA NOTED. IV SITE ON LEFT AC G20 INTACT, PATENT, NS INFUSING AT 50CC/HR, NO SIGNS OF INFILTRATION NOTED. IV SITE ON RIGHT FOREARM G20 INTACT, PATENT WITH HEP LOCK IN PLACE. BED IN LOW POSITION, LOCKED, CALL LIGHT WITHIN REACH. WILL CONTINUE TO MONITOR.
[2019-07-11 08:00] VITALS: BP 108/55
[2019-07-11] MEDS ORDERED: LACT-215 PO (08:56)
[2019-07-11] MEDS ORDERED: INSU100V3 IJ (08:56)
[2019-07-11] MEDS ORDERED: AMIN887L7 PO (08:56)
[2019-07-11] MEDS ORDERED: IPRA0.2S49 IH (08:56)
[2019-07-11] MEDS ORDERED: ALBU1.257 IH (08:56)
[2019-07-11] MEDS ORDERED: ALBU2.5V38 IH (08:56)
[2019-07-11] MEDS: Magnesium 1GM/D5W 100ML PREMIX 100 ML IV SCH ×2 (10:41→11:40)
--- NOTE | 2019-07-11 11:11 | NUR ---
BLADDER SCAN DONE, OVER 521ML NOTED, [facility] NOTIFIED
[2019-07-11] MEDS ORDERED: Magnesium 1GM/D5W 100ML PREMIX 100 ML IV SCH (11:39)
[2019-07-11] MEDS: POTASSIUM CL. PREMIX PERIPHER. 50 ML IV SCH ×2 (11:51→12:59)
--- NOTE | 2019-07-11 16:31 | NUR ---
BEGAN CONTINUOUS BLADDER IRRIGATION
--- NOTE | 2019-07-11 19:35 | NUR ---
KATHERYN RN CLOSING NOTES PT IN BED, TOLERATING BIPAP SETTINGS WELL, NO SIGNS OF RESPIRATORY DISTRESS NOTED. BRANNON CATHETER INTACT, PATENT, CONTINUOUS BLADDER IRRIGATION DRAINING CLEAR YELLOW URINE, NO MORE HEMATURIA NOTED. IV SITE ON LEFT AC G20 INTACT, PATENT, NS INFUSING AT 100CC/HR, NO SIGNS OF INFILTRATION NOTED. IV SITE ON RIGHT FOREARM G20 INTACT, PATENT WITH HEP LOCK IN PLACE. BED IN LOW POSITION, LOCKED, CALL LIGHT WITHIN REACH. PROVIDED SAFETY AND COMFORT TO PT THROUGHOUT SHIFT, ALL DUE MEDS GIVEN, TURNED AND REPOSITIONED PT EVERY 2 HOURS THROUGHOUT SHIFT. GAVE REPORT TO NOC SHIFT NURSE FOR JOSSE.
[2019-07-11] MEDS: VANCOMYCIN 1 GM in IV D5W 250 ML IV SCH (22:05)
[2019-07-11 23:31] LABS: HEMOGLOBIN 11.2 g/dL (11.5-14.8); MONOCYTES # (AUTO) 0.4 /CMM (0.1-1.30)
[2019-07-11 23:39] LABS: CALCIUM, SERUM 7.1 mg/dL (8.5-10.1); CREATININE 1.2 mg/dL (0.6-1.3); POTASSIUM 3.7 mmol/L (3.5-5.1); TOTAL PROTEIN, SERUM 5.7 g/dL (6.4-8.2)
[2019-07-11 23:44] LABS: ALBUMIN 1.2 g/dL (3.4-5.0)
--- NOTE | 2019-07-11 23:49 | NUR ---
RN NOTE BLADDER SCAN COMPLETED ORDERED WHICH SHOWED 465ML OF RESIDUAL. RECEIVED ALERT FOR CRITICAL LAB VALUES. SODIUM 157 AND ALBUMIN 1.2. NOTIFIED MAYLIN FERNANDEZ.
[2019-07-12 00:02] LABS: BASOPHILS % (AUTO) 0.1 % (0.0-2.0); EOSINOPHILS % (AUTO) 1.3 % (0.0-6.0); HEMATOCRIT 35 % (33-45); LYMPHOCYTES # (AUTO) 1.1 /CMM (0.8-4.8); LYMPHOCYTES % (AUTO) 8.4 % (20.0-44.0); MEAN CORPUSCULAR HGB CONC 32 g/dl (31.0-36.0); MEAN CORPUSCULAR VOLUME 99 fL (82-100); NEUTROPHILS # (AUTO) 11.1 /CMM (1.8-8.9); NEUTROPHILS % (AUTO) 87.2 % (43.0-81.0); PLATELET COUNT (AUTO) 53 /CMM (150-450); RED BLOOD CELL COUNT(AUTO) 3.54 MIL/uL (4.0-5.2); WHITE BLOOD COUNT (AUTO) 12.7 K/uL (4.3-11.0)
--- NOTE | 2019-07-12 00:04 | NUR ---
RN KIMBERLY CARLISLE NP CALLED BACK WITH ORDER TO REMOVE BRANNON CATHETER AND REINSERT NEW ONE. ORDER NOTED AND CARRIED OUT.
[2019-07-12 00:08] LABS: LYMPHOCYTES % (MANUAL) 4 % (16-48); MONOCYTES % (MANUAL) 3 % (0-11.0); NEUTROPHILS % (MANUAL) 93 (42-76)
[2019-07-12] MEDS: IV D5/0.45 NACL 1,000 ML IV PRN ×2 (01:07→18:27)
[2019-07-12] MEDS: MEROPENEM 500 MG in IV NS 0.9% 50 ML IV SCH ×2 (01:14→15:53)
[2019-07-12] MEDS ORDERED: ALBUMIN 25% 100 ML IV ONE ×3 (02:25→02:31)
[2019-07-12] MEDS: ALBUMIN 25% 25 GM in PREMIX 1 EA IV SCH ×4 (02:34→09:36)
--- NOTE | 2019-07-12 06:26 | NUR ---
RT NOTE Pt rec'd on bipap on noted settings. mepilex in place and no redness or skin tear noted. Pt awake and alert. Pt shows no signs of sob or resp distress. Alarms are set and audible. Bipap plugged into red outlet. Ambu bag bedside. Will continue to monitor closely. Addendum: 07/12/19 at 0628 by YADIEL WORKMAN RT Amended: Links added.
--- NOTE | 2019-07-12 07:00 | NUR ---
RN NOTE PT IN BED, TOLERATING BIPAP SETTINGS, NO SIGNS OF RESPIRATORY DISTRESS NOTED. BRANNON CATHETER PATENT WITH CONTINUOUS BLADDER IRRIGATION DRAINING CLEAR YELLOW URINE, NO HEMATURIA OR CLOTS NOTED. BED IN LOW POSITION, LOCKED, CALL LIGHT WITHIN REACH. ALL NEEDS MET AND ATTENDED TO. ENDORSED TO MORNING SHIFT.
[2019-07-12 07:08] LABS: BASOPHILS % (AUTO) 0.3 % (0.0-2.0); EOSINOPHILS % (AUTO) 0.4 % (0.0-6.0); HEMATOCRIT 27 % (33-45); HEMOGLOBIN 8.6 g/dL (11.5-14.8); LYMPHOCYTES # (AUTO) 0.6 /CMM (0.8-4.8); LYMPHOCYTES % (AUTO) 5.9 % (20.0-44.0); MEAN CORPUSCULAR HGB CONC 32 g/dl (31.0-36.0); MEAN CORPUSCULAR VOLUME 99 fL (82-100); MONOCYTES # (AUTO) 0.3 /CMM (0.1-1.30); MONOCYTES % (AUTO) 2.9 % (2.0-12.0); NEUTROPHILS # (AUTO) 9.4 /CMM (1.8-8.9); NEUTROPHILS % (AUTO) 90.5 % (43.0-81.0); PLATELET COUNT (AUTO) 58 /CMM (150-450); RED BLOOD CELL COUNT(AUTO) 2.74 MIL/uL (4.0-5.2); WHITE BLOOD COUNT (AUTO) 10.4 K/uL (4.3-11.0)
[2019-07-12 07:35] LABS: CALCIUM, SERUM 7.3 mg/dL (8.5-10.1); MAGNESIUM 2.2 mg/dL (1.8-2.4); PHOSPHORUS 2.9 mg/dL (2.5-4.9); POTASSIUM 3.3 mmol/L (3.5-5.1)
--- NOTE | 2019-07-12 07:57 | NUR ---
RN OPENING NOTES RECEIVED PATIENT RESTING COMFORTABLY IN BED WITH CONTINUOUS BIPAP, DOES NO SHOW ANY S/SX OF RESP DISTRESS OR SOB. SHE IS AOX1, NON-VERBAL, AND ON BEDREST AT THIS TIME. 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 PT HAS EDEMA ON UPPER AND LOWER EXTREMITIES. CRACKLES HEARD DURING LUNG AUSCALTATION. PT IS NPO FOR AMS. SHE HAS A LAC 20 G INFUSING D5 1/2 NS AT 100 ML/HR. SAFETY MEASURES HAVE BEEN IMPLEMENTED, CALL LIGHT IS WITHIN REACH, BED IS IN LOWEST AND LOCKED POSITION, SIDE RAILS UP X2, WILL CONTINUE TO MONITOR FOR ANY CHANGES.
[2019-07-12 08:00] VITALS: BP 106/59
[2019-07-12 09:10] LABS: BAND % (MANUAL) 1 % (0.0-5.0); LYMPHOCYTES % (MANUAL) 4 % (16-48); MONOCYTES % (MANUAL) 2 % (0-11.0); NEUTROPHILS % (MANUAL) 93 (42-76)
--- NOTE | 2019-07-12 09:20 | NUR ---
WOUND CARE CONSULT: PT FOLLOWED BY PLASTIC SURGERY TEAM FOR WOUND CARE. DEFER TO SURGICAL TEAM FOR WOUND TREATMENT PLAN. PT ON MARY ISOFLEX LOW AIRLOSS BED. ALL SKIN PROTECTION RECOMMENDATIONS IN PLACE AND DISCUSSED WITH NURSING STAFF. WILL SEE PRN.
[2019-07-12] MEDS: POTASSIUM CL. PREMIX PERIPHER. 50 ML IV SCH ×4 (10:41→12:39)
[2019-07-12] MEDS ORDERED: FUROSEMIDE 20 MG/2 ML VIAL IV ONE (11:30)
[2019-07-12 12:00] VITALS: BP 83/41
--- NOTE | 2019-07-12 15:53 | NUR ---
RN NOTES 1400 DOSE OF MEROPENEM IV GIVEN LATE DUE TO PHARMACY DELAY
[2019-07-12 16:00] VITALS: BP 94/58
--- NOTE | 2019-07-12 19:28 | NUR ---
RN NOTES PATIENT IS RESTING IN BED COMFORTABLY AT THIS TIME. TOLERATING CONTINUOUS BIPAP WELL, FAMILY AT BEDSIDE. SHE IS MORE ALERT NOW. PT NEEDS HAVE BEEN MET, VITAL SIGNS ARE STABLE, NO ACUTE CHANGES OCCURRED THROUGHOUT THE SHIFT. SAFETY MEASURES HAVE BEEN IMPLEMENTED, CALL LIGHT IS WITHIN REACH, BED IS IN LOWEST AND LOCKED POSITION, SIDE RAILS UP X2, PT HAS BEEN ENDORSED TO NIGHTSHIFT RN FOR CONTINUITY OF CARE.
[2019-07-12 20:00] VITALS: BP 114/51
[2019-07-12] MEDS: VANCOMYCIN 1 GM in IV D5W 250 ML IV SCH (23:39)
[2019-07-13] VITALS: BP 99/50
[2019-07-13] MEDS: MEROPENEM 500 MG in IV NS 0.9% 50 ML IV SCH ×2 (02:04→14:40)
[2019-07-13 04:00] VITALS: BP 142/64
--- NOTE | 2019-07-13 05:30 | NUR ---
RN NOTE RECEIVED ALERT FOR CRITICAL LAB VALUE. PRELIMINARY BLOOD CULTURES WITH GRAM NEGATIVE RODS. PAGED DR. CHUNG.
--- NOTE | 2019-07-13 05:35 | NUR ---
RN NOTE RECEIVED CALL BACK FROM DAVIDA FERNANDEZ. NOTIFIED [place] MAORI OF BLOOD CULTURE RESULT. PT IS ALREADY ON ANTIBIOTICS VANCOMYCIN AND MERREM IV. [place] MA[facility] HAS NO NEW ORDERS. ALSO NOTIFIED [place] [facility] THAT PT IS SATURATING 85-87% WHILE ON CONTINUOUS BIPAP AND WITH RESPIRATIONS BETWEEN 25-30. [place] MAOR[facility] WITH ORDER TO DO STAT ABG, ORDER NOTED AND CARRIED OUT.
[2019-07-13 06:03] LABS: ABG BASE EXCESS -2.8 mmol/L; ABG OXYGEN SATURATION 95.2 % (92.0-98.5); ABG PCO2 50.8 mmHg (35.0-45.0); ABG PH 7.292 (7.350-7.450); ABG PO2 91.5 mmHg (75.0-100.0); AaDO2 570.7 mmHg; MetHb 0.5 % (0.0-1.5); O2Hb 94.7 % (94.0-97.0); PEEP,BG 5 cm H2O; SITE, ABG Right Radial; VENT MODE, BG ST 15/5 r12 100%
--- NOTE | 2019-07-13 06:20 | NUR ---
0620 SHOP STEWARD HIGUERA NOTIFIED OF STAT ABG RESULT WITH NO ORDER MADE. PATIENT STILL TACHYPNEIC IN THE 30S. O2 SATURATION 97% ON 100% FIO2. SHOP STEWARD HIGUERA AWARE ALSO. HOB KEPT ELEVATED FOR MAXIMUM OXYGENATION. PATIENT AWAKE AND RESPONDS TO VERBAL COMMANDS. PT. BEING MONITORED CLOSELY. CODE STATUS DNR/DNI.
[2019-07-13] MEDS: IV D5/0.45 NACL 1,000 ML IV PRN (06:53)
[2019-07-13 07:11] LABS: CALCIUM, SERUM 7.9 mg/dL (8.5-10.1); CREATININE 0.9 mg/dL (0.6-1.3); POTASSIUM 3.1 mmol/L (3.5-5.1)
[2019-07-13 07:29] LABS: BASOPHILS % (AUTO) 0.2 % (0.0-2.0); EOSINOPHILS % (AUTO) 1.7 % (0.0-6.0); HEMATOCRIT 33 % (33-45); HEMOGLOBIN 10.2 g/dL (11.5-14.8); LYMPHOCYTES # (AUTO) 0.8 /CMM (0.8-4.8); LYMPHOCYTES % (AUTO) 6.4 % (20.0-44.0); MEAN CORPUSCULAR HGB CONC 31 g/dl (31.0-36.0); MEAN CORPUSCULAR VOLUME 100 fL (82-100); MONOCYTES # (AUTO) 0.5 /CMM (0.1-1.30); MONOCYTES % (AUTO) 3.6 % (2.0-12.0); NEUTROPHILS # (AUTO) 11.4 /CMM (1.8-8.9); NEUTROPHILS % (AUTO) 88.1 % (43.0-81.0); PLATELET COUNT (AUTO) 77 /CMM (150-450); RED BLOOD CELL COUNT(AUTO) 3.26 MIL/uL (4.0-5.2)
--- NOTE | 2019-07-13 07:42 | NUR ---
RN OPENING NOTES RECEIVED PATIENT RESTING IN BED COMFORTABLY WITH CONTINUOUS BIPAP AT 100% FIO2. SHE IS AOX1, MUMBLES WORDS, CONFUSED, AND NON-AMBULATORY. CRACKLES HEARD ON BILATERAL LUNG CHOWDHURY UPON AUSCULTATION, TELE MONITOR SHOWING SR WITH BBB. FC IS INTACT WITH NS IRRIGATION FLUID RUNNING AT 100 ML/HR. SHE IS CURRENTLY NPO FOR ALTERED MENTAL STATUS. LAC 20 IS PATENT AND INTACT, RUNNING D5 1/2 NS AT 100 ML/HR. SAFETY MEASURES HAVE BEEN IMPLEMENTED, CALL LIGHT IS WITHIN REACH, BED IS IN LOWEST AND LOCKED POSITION, SIDE RAILS UP X2, WILL CONTINUE TO MONITOR FOR ANY CHANGES.
[2019-07-13 08:00] VITALS: BP 95/51
[2019-07-13 08:49] LABS: BAND % (MANUAL) 1 % (0.0-5.0); EOSINOPHILS % (MANUAL) 1 % (0-4); LYMPHOCYTES % (MANUAL) 6 % (16-48); MONOCYTES % (MANUAL) 2 % (0-11.0); NEUTROPHILS % (MANUAL) 90 (42-76)
[2019-07-13] MEDS ORDERED: POTASSIUM CHLORIDE 20 MEQ TAB.PRT.SR PO SCH (09:00)
--- NOTE | 2019-07-13 09:00 | NUR ---
RN NOTES PT IS NPO AND IS ON CONTINUOUS BIPAP. SPOKE WITH DR. FLOWERS, RECEIVED OK TO CHANGE PO POTASSIUM TO IV, WILL CONTINUE TO MONITOR FOR ANY CHANGES
--- NOTE | 2019-07-13 09:30 | NUR ---
RN NOTES ENDORSED CRITICAL LAB VALUES OF SODIUM: 157 AND LACTIC ACID: 2.[address] BUCHANAN. NO NEW ORDERS AT THIS, WILL CONTINUE TO MONITOR FOR ANY CHANGES.
[2019-07-13] MEDS: POTASSIUM CHLORIDE 10 MEQ/50 ML PREMIXED IVPB FOR PERIPHERAL LINE IV SCH ×6 (10:22→15:49)
[2019-07-13] MEDS: IV D5W 1,000 ML IV PRN (11:35)
[2019-07-13 11:37] LABS: BILIRUBIN,DIRECT 0.4 mg/dL (0.0-0.2)
[2019-07-13 12:00] VITALS: BP 97/58
[2019-07-13 16:00] VITALS: BP 100/58
--- NOTE | 2019-07-13 19:05 | NUR ---
RN OPENING NOTES: PATIENT IN BED, AWAKE, AND RESPONSIVE. ON CONTINUOUS BIPAP. NO RESPIRATORY DISTRESS. O2 SAT 97%. NO S/S OF PAIN. ON CONTINUOUS BLADDER IRRIGATION, TOLERATING WELL. BRANNON DRAINING CLEAR YELLOW URINE. (L) AC G20 INTACT, PATENT, AND FLUSHING WELL. BED LOCKED, ALARM ON, AND IN LOWEST POSITION. CALL LIGHT PLACED WITHIN REACH. WILL CONT. TO MONITOR.
[2019-07-13 20:00] VITALS: BP 113/70
--- NOTE | 2019-07-13 20:08 | NUR ---
RN CLOSING NOTES PATIENT IS RESTING COMFORTABLY IN BED WITH CONTINUOUS BIPAP, TOLERATING WELL. PT NEEDS HAVE BEEN MET, VITAL SIGNS ARE STABLE, NO ACUTE CHANGES OCCURRED THROUGHOUT THE SHIFT. SAFETY MEASURES HAVE BEEN IMPLEMENTED, CALL LIGHT IS WITHIN REACH, BED IS IN LOWEST AND LOCKED POSITION, SIDE RAILS UP X2, WILL CONTINUE TO MONITOR FOR ANY CHANGES.
--- NOTE | 2019-07-13 20:11 | NUR ---
PT HAS BEEN ENDORSED TO NIGHTSHIFT RN FOR CONTINUITY OF CARE.
--- NOTE | 2019-07-13 23:13 | NUR ---
RT NOTE Pt rec'd on bipap on noted settings. under the nose mask in place and no redness or skin tear noted. Pt awake and alert. Pt shows no signs of sob or resp distress. Alarms are set and audible. Bipap plugged into red outlet. Ambu bag bedside. Will continue to monitor closely. Addendum: 07/13/19 at 2314 by YADIEL WORKMAN RT Amended: Links added.
[2019-07-14] VITALS: BP 137/80
[2019-07-14] MEDS: MEROPENEM 500 MG in IV NS 0.9% 50 ML IV SCH ×2 (01:18→14:58)
--- NOTE | 2019-07-14 02:45 | NUR ---
RN NOTE: PATIENT NOTED WITH ATTEMPTING TO REMOVE CONTINUOUS BIPAP. FREQUENT VISUAL CHECKS DONE.
[2019-07-14] MEDS: IV D5W 1,000 ML IV PRN ×2 (03:33→18:19)
[2019-07-14 04:00] VITALS: BP 106/40
--- NOTE | 2019-07-14 07:15 | NUR ---
RN CLOSING NOTES: PATIENT IN BED, ASLEEP, BUT EASILY AROUSABLE. AAOX1. NO RESPIRATORY DISTRESS. REMAINS ON CONTINUOUS BIPAP, TOLERATING WELL. SAFETY PRECAUTIONS HAVE BEEN IMPLEMENTED. BED LOCKED, ALARM ON, AND IN LOWEST POSITION. CALL LIGHT PLACED WITHIN REACH. ENDORSED TO AM SHIFT NURSE FOR CONTINUITY OF CARE.
--- NOTE | 2019-07-14 07:45 | NUR ---
MAINTENANCE ASSISTANT NOTES PATIENT IN BED AWAKE A/O 1-2 ON CONTINUES BIPAP AND BILATERAL SOFT RESTRAINS. PATIENT ON ISOLATION ESBL URINE. L AC # 20 PATENT. CALL LIGHT WITHIN REACH, BED AT THE LOWEST POSITION LOCKED. WILL CONTINUE TO MONITOR THE PATIENT.
[2019-07-14 07:55] LABS: EOSINOPHILS % (AUTO) 1.9 % (0.0-6.0); HEMATOCRIT 43 % (33-45); HEMOGLOBIN 13.4 g/dL (11.5-14.8); LYMPHOCYTES # (AUTO) 0.6 /CMM (0.8-4.8); LYMPHOCYTES % (AUTO) 7.5 % (20.0-44.0); MEAN CORPUSCULAR HGB CONC 32 g/dl (31.0-36.0); MEAN CORPUSCULAR VOLUME 99 fL (82-100); MONOCYTES # (AUTO) 0.3 /CMM (0.1-1.30); MONOCYTES % (AUTO) 3.9 % (2.0-12.0); NEUTROPHILS # (AUTO) 7.3 /CMM (1.8-8.9); NEUTROPHILS % (AUTO) 86.7 % (43.0-81.0); RED BLOOD CELL COUNT(AUTO) 4.31 MIL/uL (4.0-5.2); WHITE BLOOD COUNT (AUTO) 8.4 K/uL (4.3-11.0)
[2019-07-14 07:57] LABS: PLATELET COUNT (AUTO) 43 /CMM (150-450)
[2019-07-14 08:00] VITALS: BP 130/76
[2019-07-14 08:07] LABS: CALCIUM, SERUM 7.6 mg/dL (8.5-10.1); CREATININE 0.8 mg/dL (0.6-1.3); POTASSIUM 4.2 mmol/L (3.5-5.1)
[2019-07-14 08:55] LABS: LYMPHOCYTES % (MANUAL) 10 % (16-48); MONOCYTES % (MANUAL) 3 % (0-11.0); NEUTROPHILS % (MANUAL) 87 (42-76)
[2019-07-14 12:00] VITALS: BP 133/76
--- NOTE | 2019-07-14 13:37 | NUR ---
C D REACTOR OPERATOR NOTES PER DR BUCHANAN AND LUCY FLOWERS GIVE PATIENT 1 BAG BOLUS NS.
[2019-07-14] MEDS ORDERED: IV NS 0.9% 1,000 ML IV PRN (14:00)
--- NOTE | 2019-07-14 19:20 | NUR ---
KATHERYN RN OPENING NOTE RECEIVED PATIENT IN BED RESTING WITH HOB ELEVATED. FAMILY AT BEDSIDE AT THIS TIME. IN NOT APPARENT DISTRESS NOTED. ON CONTINUOUS BIPAP. A&O X1. EDEMA ON BILATERAL ARMS AND LEGS. ON BRANNON. WILL CONTINUE TO MONITOR.
[2019-07-14 20:00] VITALS: BP 111/64
[2019-07-15] VITALS: BP 116/72
[2019-07-15 00:02] LABS: BILIRUBIN,TOTAL 1.4 mg/dL (0.2-1.0)
[2019-07-15] MEDS: MEROPENEM 500 MG in IV NS 0.9% 50 ML IV SCH ×2 (01:48→14:33)
[2019-07-15 04:00] VITALS: BP 103/58
--- NOTE | 2019-07-15 06:59 | NUR ---
RN CLOSING NOTE PATIENT IS IN BED RESTING WITH HOB ELEVATED. A&O X1. BREATHING IS EVEN AND NON LABORED. NO SOB NOTED. ON CONTINUOUS BIPAP AND TOLERATED WELL. ALL DUE MEDS GIVEN AND TOLERATED WELL. BILATERAL EDEMA ON LEGS AND ARMS NOTED. BILATERAL WRIST RESTRAINTS DISCONTINUED IN THIS SHIFT. PATIENT IS KEPT CLEAN, DRY, AND COMFORTABLE. CALL LIGHT IS WITHIN EASY REACH. WILL CONTINUE TO MONITOR.
--- NOTE | 2019-07-15 07:00 | NUR ---
VP INFORMATICS NOTES RECEIVED PATIENT IN BED ON CONTINUES BIPAP, A/OX1 , IV SITE PATENT ON [id number] /H. BRANNON IRRIGATION 100 ML/H. NO SOB OR DISCOMFORT NOTED AT THIS TIME. BLE AND GARO EDEMA.CALL LIGHT WITHIN REACH, BED AT THE LOWEST POSITION LOCKED.
[2019-07-15 08:00] VITALS: BP 120/32
[2019-07-15 12:00] VITALS: BP 95/75
[2019-07-15 13:52] LABS: CALCIUM, SERUM 8.7 mg/dL (8.5-10.1); CREATININE 0.8 mg/dL (0.6-1.3); POTASSIUM 4.2 mmol/L (3.5-5.1)
[2019-07-15 13:57] LABS: BASOPHILS % (AUTO) 0.1 % (0.0-2.0); EOSINOPHILS % (AUTO) 0.6 % (0.0-6.0); HEMATOCRIT 35 % (33-45); HEMOGLOBIN 11.3 g/dL (11.5-14.8); LYMPHOCYTES % (AUTO) 6.7 % (20.0-44.0); MEAN CORPUSCULAR HGB CONC 32 g/dl (31.0-36.0); MEAN CORPUSCULAR VOLUME 101 fL (82-100); MONOCYTES # (AUTO) 0.3 /CMM (0.1-1.30); MONOCYTES % (AUTO) 2.2 % (2.0-12.0); NEUTROPHILS # (AUTO) 13.5 /CMM (1.8-8.9); NEUTROPHILS % (AUTO) 90.4 % (43.0-81.0); PLATELET COUNT (AUTO) 93 /CMM (150-450); RED BLOOD CELL COUNT(AUTO) 3.52 MIL/uL (4.0-5.2); WHITE BLOOD COUNT (AUTO) 14.9 K/uL (4.3-11.0)
[2019-07-15 14:48] LABS: ABG BASE EXCESS -8.3 mmol/L; ABG OXYGEN SATURATION 86.9 % (92.0-98.5); ABG PCO2 61.4 mmHg (35.0-45.0); ABG PO2 63.3 mmHg (75.0-100.0); AaDO2 442.6 mmHg; COHb 0.1 % (0.5-1.5); MetHb 0.7 % (0.0-1.5); O2Hb 86.2 % (94.0-97.0); SITE, ABG Left Radial; VENT MODE, BG ST 15/5 RR12 80%
--- NOTE | 2019-07-15 15:17 | NUR ---
RT NOTE CHANGE SETTINGS PER MD ORDER. 20/11 RR 18 Addendum: 07/15/19 at 1519 by ALEX FABIAN RT Amended: Links added.
[2019-07-15] MEDS ORDERED: IV NS 0.9% 1,000 ML IV ONE (15:30)
--- NOTE | 2019-07-15 15:32 | NUR ---
NETWORK SECURITY ENGINEER NOTES PER DR DEWAYNE MINAYA TO PERFORM MIDLINE FOR PATIENT.
[2019-07-15 16:00] VITALS: BP 95/75
--- NOTE | 2019-07-15 19:00 | NUR ---
RN OPENING NOTES: PATIENT ASLEEP BUT EASILY AROUSABLE. NO RESPIRATORY DISTRESS. ON CONTINUOUS BIPAP. HOB ELEVATED. NO S/S OF PAIN OR FACIAL GRIMACING. IV BOLUS STILL RUNNING. ON CONT. BLADDER IRRIGATION, TOLERATING WELL. BRANNON IS INTACT, PATENT, AND DRAINING CLEAR YELLOW URINE. SAFETY PRECAUTIONS IMPLEMENTED. BED LOCKED, ALARM ON, AND IN LOWEST POSITION. CALL LIGHT PLACED WITHIN REACHED. WILL CONT. TO MONITOR.
[2019-07-15 19:12] LABS: BILIRUBIN,DIRECT 0.7 mg/dL (0.0-0.2)
--- NOTE | 2019-07-15 19:30 | NUR ---
RT NOTE PT RECEIVED ON BIPAP. NOSE MASK SECURED. BIPAP PLUGGED TO RED OUTLET. ALARMS ON AND AUDIBLE. NO SOB NOTED. WILL CONTINUE TO MONITOR T/O SHIFT. CONT. PULSE OX CONNECTED. Addendum: 07/15/19 at 2319 by CULLEN STAFFORD RT Amended: Links added.
--- NOTE | 2019-07-15 19:40 | NUR ---
labs called for Critical at this time for lactic Acid 3.0 trending down from 3.6. Patient receiving Bolus of NS as ordered. Will Endorse to Silvia Anthony .
--- NOTE | 2019-07-15 19:45 | NUR ---
BANDER AND CELLOPHANER MACHINE HELPER NOTES PATIENT IS A/OX 1 ON CONTINUES BIPAP. FAMILY AT BED SIDE. ALL NEEDS ATTENDED. MEDICATION ADMINISTRATED. BOLUS GIVEN NS [address] BUCHANAN. MIDLINE ADMINISTRATED. ABG PERFORMED AND DR BELLE AWARE. CALL LIGHT WITHIN REACH BED AT THE LOWEST POSITION LOCKED . ENDORSED TO COMPRESSOR STATION OPERATOR NURSE FOR JOSSE.
--- NOTE | 2019-07-15 19:45 | NUR ---
Semiconductor Bonder saranya Giraldo made aware, regarding patient Lactic acid trending down from 3.6 to 3.0
[2019-07-15 20:00] VITALS: BP 129/65
[2019-07-15] MEDS: IV D5W 1,000 ML IV PRN (21:47)
[2019-07-16] VITALS: BP 112/58
--- NOTE | 2019-07-16 00:30 | NUR ---
RT NOTE PT PLACED ON 100% DUE TO LOW SATURATION. RUDOLPH AHMADI NOTIFIED AND IS AWARE. MONITORED CLOSELY.
[2019-07-16] MEDS: MEROPENEM 500 MG in IV NS 0.9% 50 ML IV SCH ×2 (01:17→14:00)
--- NOTE | 2019-07-16 03:38 | NUR ---
RN NOTE: PATIENT NOTED WITH DESATURATION 80-89%. RT AT BEDSIDE. PATIENT NOW ON 100% FIO2 CONTINUOUS BIPAP. PATIENT REMAINS DNR/DNI. HIGUERA MANUFACTURING DEVELOPMENT ENGINEER MADE AWARE. NO NEW ORDERS AT THIS TIME. WILL CONT. TO MONITOR FOR CHANGES.
[2019-07-16 04:00] VITALS: BP 108/70
--- NOTE | 2019-07-16 07:00 | NUR ---
BUILDING AND CONSTRUCTION MANAGER NOTES OPENING PATIENT RECEIVED AT BED SIDE PATIENT IS ON BIPAP CONTIOUS SETTINGS PER DOCTORS ORDERS .PATIENT HAS WEEPING EDEMA. PATIENT IS NOT RESPONSIVE WITH NAME TOUCH, LIGHT PAIN. PATIENT HAS BLE AND GARO EDEMA. CALL LIGHT WITH IN REACH ALL SAFETY MEASURE IMPLEMENTED PER HOSPITAL POLICY.
--- NOTE | 2019-07-16 07:15 | NUR ---
RN CLOSING NOTES: PATIENT ASLEEP BUT EASILY AROUSABLE. REMAINS ON CONT. BIPAP. O2 SAT 96%. NO RESPIRATORY DISTRESS. NO S/S OF PAIN. SAFETY PRECAUTIONS IMPLEMENTED. BED LOCKED, ALARM ON, AND IN LOWEST POSITION. CALL LIGHT WITHIN REACH. WILL ENDORSE TO AM SHIFT NURSE FOR CONTINUITY OF CARE.
[2019-07-16 08:00] VITALS: BP 103/48
[2019-07-16 08:02] LABS: BASOPHILS % (AUTO) 0.1 % (0.0-2.0); HEMATOCRIT 33 % (33-45); HEMOGLOBIN 10.2 g/dL (11.5-14.8); LYMPHOCYTES # (AUTO) 1.3 /CMM (0.8-4.8); LYMPHOCYTES % (AUTO) 8.9 % (20.0-44.0); MEAN CORPUSCULAR HGB CONC 31 g/dl (31.0-36.0); MEAN CORPUSCULAR VOLUME 100 fL (82-100); MONOCYTES # (AUTO) 0.2 /CMM (0.1-1.30); MONOCYTES % (AUTO) 1.8 % (2.0-12.0); NEUTROPHILS # (AUTO) 12.4 /CMM (1.8-8.9); NEUTROPHILS % (AUTO) 88.2 % (43.0-81.0); PLATELET COUNT (AUTO) 88 /CMM (150-450); RED BLOOD CELL COUNT(AUTO) 3.26 MIL/uL (4.0-5.2)
[2019-07-16 08:43] LABS: CALCIUM, SERUM 8.1 mg/dL (8.5-10.1); CREATININE 0.8 mg/dL (0.6-1.3); POTASSIUM 4.1 mmol/L (3.5-5.1)
--- NOTE | 2019-07-16 09:00 | NUR ---
JOB HAND NOTES - DR BARBRA BELLE SAW PATIENT. DR BELLE : WANTED TO TALK TO FAMILY ABOUT PATIENT CONDITION. DR. BELLE : TELL PRIMARY ABOUT PATIENT CONDITION
--- NOTE | 2019-07-16 10:30 | NUR ---
FLOUR BLENDER HELPER NOTES -UPDATE NOTIFIED FAMILY ABOUT PATIENT CONDITION. PER DR BELLE ORDERS AFTER FAMILY IS OKAY WITH COMFORT MEASURE. PROCEDURE WITH COMFORT MEASURES .
[2019-07-16 10:35] LABS: BAND % (MANUAL) 1 % (0.0-5.0); EOSINOPHILS % (MANUAL) 1 % (0-4); LYMPHOCYTES % (MANUAL) 4 % (16-48); MONOCYTES % (MANUAL) 2 % (0-11.0); NEUTROPHILS % (MANUAL) 92 (42-76)
[2019-07-16 12:00] VITALS: BP 100/30
[2019-07-16] MEDS ORDERED: LORAZEPAM INJ 2 MG/ML VIAL IV PRN (15:00)
--- NOTE | 2019-07-16 15:19 | NUR ---
CHIEF CONSTRUCTION INSPECTOR NOTES - MS - DRIP ORDERS ON MS DRIP 3 MG/ HR - UP TO 15 MG/HR ( MAX) AFTER ONE HOUR D/C BIPAP ATIVAN 1 MG Q2H
[2019-07-16] MEDS ORDERED: MORPHINE SULFATE/PF 30 MG in IV NS 0.9% 27 ML, PCA TOTAL VOLUME 1 BAG IV PRN ×3 (15:30)
[2019-07-16 16:00] VITALS: BP 100/30
--- NOTE | 2019-07-16 16:24 | NUR ---
PAINT ROLLER WINDER NOTES PATIENT ON COMFORT MEASURES.
[2019-07-16] MEDS ORDERED: KEY,NONCONTROL,TO KEEP IN PYXI 1 EA MC ONE ×2 (16:25→18:59)
[2019-07-16] MEDS: IV D5W 1,000 ML IV PRN (16:34)
--- NOTE | 2019-07-16 16:45 | NUR ---
KAHTERYN RN, MORPHINE DRIP STARTED AWT 3MG /HR ORDERED FAMILY AT BED SIDE
--- NOTE | 2019-07-16 17:45 | NUR ---
KATHERYN RN, BIPAPP DISCONTINUE ORDERED AFTER STARTING MORPHINE DRIP 1 HR AFTER ORDERED FAMILY AT BED SIDE
--- NOTE | 2019-07-16 18:19 | NUR ---
KATHERYN RN, No pulse no respiration,pupils dilated telemetry shows flat line ,patient pnounoced at present time family at bedside
--- NOTE | 2019-07-16 18:27 | NUR ---
MORNING NEWS PRODUCER NOTES IV LINES PATIENT IV LINES DISCONNECTED. BRANNON DISCONNECTED. PATIENT MIDLINE DISCONNECTED . WITH FAMILY AT BEDSIDE .
--- NOTE | 2019-07-16 18:45 | NUR ---
ASSISTANT PROFESSOR SURGICAL TECHNOLOGY NOTE - DOCTOR NOTIFIED ABOUT PATIENT PASSING AWAY
--- NOTE | 2019-07-16 18:45 | NUR ---
Yosef GALDAMEZ, [facility] [phone] called in reports number [id number] case number is [id number]
--- NOTE | 2019-07-16 19:30 | NUR ---
TELE KATHERYN RN NOTES RECEIVED AT 1818,AWAITING FOR MORTUARY TO PICK.FAMILY MEMBERS AT BEDSIDE.ISOLATION FPR ESBL URINE AND BLOOD.
--- NOTE | 2019-07-16 20:18 | NUR ---
TELE -KATHERYN RN NOTES PROMOTIONS REPRESENTATIVE BY MORTUARY AT THIS TIME.
== END 2019-07-16 20:28 | disposition expired | DRG 871 ==
LOC: ER 21:49 → TELE-TD 07-11 00:51
PROVIDERS: ADMIT Nurse Practitioner Acute Care; ATTEND Family Medicine
PROC: 5A09557 Assistance with Respiratory Ventilation, Greater than 96 Consecutive Hours, Continuous Positive Airway Pressure (ICD-10-PCS; principal; 2019-07-11)
PROC: 05H533Z Insertion of Infusion Device into Right Subclavian Vein, Percutaneous Approach (ICD-10-PCS; 2019-07-15)
DX: A41.51 Sepsis due to Escherichia coli [E. coli] (principal); E43 Unspecified severe protein-calorie malnutrition; I21.A1 Myocardial infarction type 2; I50.33 Acute on chronic diastolic (congestive) heart failure; Z51.5 Encounter for palliative care; G92 Toxic encephalopathy; J18.9 Pneumonia, unspecified organism; J96.01 Acute respiratory failure with hypoxia; N39.0 Urinary tract infection, site not specified; E87.0 Hyperosmolality and hypernatremia; E87.2 Acidosis; K76.6 Portal hypertension; Z16.12 Extended spectrum beta lactamase (ESBL) resistance; I11.0 Hypertensive heart disease with heart failure; F03.90 Unspecified dementia, unspecified severity, without behavioral disturbance, psychotic disturbance, mood disturbance, and anxiety; E03.9 Hypothyroidism, unspecified; E83.42 Hypomagnesemia; E86.0 Dehydration; E87.6 Hypokalemia; K21.9 Gastro-esophageal reflux disease without esophagitis; K74.60 Unspecified cirrhosis of liver; Z66 Do not resuscitate; N19 Unspecified kidney failure; Z79.4 Long term (current) use of insulin; Z87.440 Personal history of urinary (tract) infections; G89.29 Other chronic pain; M19.90 Unspecified osteoarthritis, unspecified site; R31.9 Hematuria, unspecified; E88.09 Other disorders of plasma-protein metabolism, not elsewhere classified; L89.156 Pressure-induced deep tissue damage of sacral region; F09 Unspecified mental disorder due to known physiological condition; E11.40 Type 2 diabetes mellitus with diabetic neuropathy, unspecified
CPT/HCPCS: 36410; 36415; 36600; 71045-TC; 80048-TC; 80053-TC; 80061-TC; 80076-TC; 80202-TC; 81000-TC; 82247-TC; 82248-TC; 82803-TC; 83605-TC; 83735-TC; 84100-TC; 84484-TC; 85025-TC; 85730-TC; 87040-TC; 87081-TC; 87086-TC; 87186-TC; 93307-TC; 94660; 94760-TC; 94762-TC; 94799-TC; A4216; A4217; A6403; G0378; J1940; J2185; J2274; J2543; J3370; J3475; J3480; J3490; J7030; J7042; J7060; J7070; P9047